=== PATIENT | female | born 1960 | race African-American/Black ===

== ENCOUNTER 2017-09-19 10:57 | Emergency (ER) | payer BC ==
[~2017-09-19] VITALS: Ht 144.8 cm; Wt 88.5 kg
--- NOTE | ~2017-09-19 | EKG ---
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
[~2017-09-19 10:57] MED LIST: ALBUTEROL2.5 MG/0.1; COZAAR100 MG PO; DOMPERIDONE 10MG PO; FLEXERIL PO; FLONASE 0.05%50 MCG NASAL; HYDROCHLOROTHIA25 M1 PO; IBUPROFEN 600600 M1 PO; JANUMET 50-1,01 EACH PO; LEVEMIR SUBQ; LEXAPRO 10 MG T10 M1 PO; LIPITOR10 MG PO; LOPRESSOR 50 MG50 M1 PO; MOBIC15 MG PO; NOVOLOG100 UNIT/1 SUBQ; OMEPRAZOLE40 MG PO; POTASSIUM20 PO; PROAIR HFA8.5 GM IH; PROTONIX40 M2 PO; SIMVASTATIN20 MG PO
[2017-09-19 11:09] VITALS: BP 129/72
[2017-09-19 12:05] LABS: ABSOLUTE NEUTROPHILS 6.4 thou/uL (1.4-8.2); BASOPHILS 0.7 % (0.0-2.0); EOSINOPHILS 1.2 % (0.0-3.0); HEMATOCRIT 39.4 % (37.0-47.0); HEMOGLOBIN 12.8 gm/dL (12.0-15.0); LYMPHOCYTES 35.8 % (24.0-44.0); MCH 26.6 pg (26.0-34.0); MCHC 32.5 g/dL (28.0-37.0); MCV 81.9 fL (80.0-100.0); MONOCYTES 4.2 % (1.0-8.0); PLATELET COUNT 228 thou/uL (150-400); POLYS 58.1 % (36.0-66.0); RBC 4.81 mil/uL (4.20-5.00); RDW 16.2 % (10.5-14.5)
[2017-09-19 12:17] LABS: CALCIUM 9.7 mg/dL (8.5-10.1); CREATININE 1.1 mg/dL (0.6-1.0); POTASSIUM 3.2 mmol/L (3.5-5.1)
[2017-09-19 12:23] LABS: ALBUMIN 3.8 g/dL (3.4-5.0); TOTAL BILIRUBIN 0.4 mg/dL (<0.1-1.0); TOTAL PROTEIN 7.7 g/dL (6.4-8.2)
[2017-09-19 13:47] LABS: URINE BILIRUBIN NEGATIVE (Negative); URINE BLOOD NEGATIVE (Negative); URINE CLARITY CLEAR; URINE COLOR YELLOW; URINE GLUCOSE-RANDOM* NEGATIVE (Negative); URINE KETONES NEGATIVE (Negative); URINE LEUKOCYTES-REFLEX TRACE (Negative); URINE NITRITE-REFLEX NEGATIVE (Negative); URINE PROTEIN (DIPSTICK) NEGATIVE (Negative); URINE SPECIFIC GRAVITY <= 1.005 (1.005-1.035); URINE UROBILINOGEN 0.2 E.U./dl (0.2-1.0)
[2017-09-19] MEDS ORDERED: ZOFRAN ODT4 MG PO (14:05)
[2017-09-19] MEDS ORDERED: CARAFATE 1 GM TA1 G1 PO (14:11)
== END 2017-09-19 21:03 | disposition home or self-care (01) ==
LOC: ER 10:57
PROVIDERS: Emergency Medicine
DX: R10.11 Right upper quadrant pain (principal); R11.0 Nausea; I10 Essential (primary) hypertension; E78.00 Pure hypercholesterolemia, unspecified; F32.9 Major depressive disorder, single episode, unspecified; J45.909 Unspecified asthma, uncomplicated; K21.9 Gastro-esophageal reflux disease without esophagitis; E11.43 Type 2 diabetes mellitus with diabetic autonomic (poly)neuropathy; K31.84 Gastroparesis; Z79.4 Long term (current) use of insulin; Z88.8 Allergy status to other drugs, medicaments and biological substances

== ENCOUNTER 2018-03-04 16:23 | Emergency (ER) | payer BC ==
[~2018-03-04] VITALS: Ht 149.9 cm; Wt 86.2 kg
[~2018-03-04 16:23] MED LIST changes: +CARAFATE 1 GM TA1 G1 PO; +ZOFRAN ODT4 MG PO
[2018-03-04 16:30] VITALS: BP 125/61
[2018-03-04] MEDS ORDERED: PROAIR HFA8.5 GM INH (16:46)
[2018-03-04] MEDS ORDERED: BENADRYL25 MG PO (16:46)
[2018-03-04] MEDS ORDERED: PREDNISONE 20 M20 MG PO (16:46)
== END 2018-03-04 17:05 | disposition home or self-care (01) ==
LOC: ER 16:23
DX: T78.40XA Allergy, unspecified, initial encounter (principal); I10 Essential (primary) hypertension; E78.00 Pure hypercholesterolemia, unspecified; E11.9 Type 2 diabetes mellitus without complications; J45.909 Unspecified asthma, uncomplicated; K21.9 Gastro-esophageal reflux disease without esophagitis; Z88.8 Allergy status to other drugs, medicaments and biological substances; X58.XXXA Exposure to other specified factors, initial encounter

== ENCOUNTER 2021-04-27 21:03 | Emergency (ER) | payer BC ==
[~2021-04-27] VITALS: Ht 157.5 cm; Wt 87.5 kg
[~2021-04-27 21:03] MED LIST changes: +BENADRYL25 MG PO; +PREDNISONE 20 M20 MG PO; +PROAIR HFA8.5 GM INH
[2021-04-27 21:49] LABS: ABSOLUTE NEUTROPHILS 6.2 thou/uL (1.4-8.2); EOSINOPHILS 1.3 % (0.0-3.0); HEMOGLOBIN 13.5 gm/dL (12.0-15.0); LYMPHOCYTES 34.4 % (24.0-44.0); MCHC 32.1 g/dL (28.0-37.0); MCV 87.2 fL (80.0-100.0); MONOCYTES 3.4 % (1.0-8.0); PLATELET COUNT 268 thou/uL (150-400); POLYS 59.9 % (36.0-66.0); RBC 4.82 mil/uL (4.20-5.00); RDW 15.9 % (10.5-14.5); WBC 10.4 thou/uL (4.0-11.0)
[2021-04-27 21:57] LABS: CALCIUM 8.9 mg/dL (8.5-10.1); CREATININE 1.1 mg/dL (0.6-1.0); POTASSIUM 3.8 mmol/L (3.5-5.1)
[2021-04-27 22:01] LABS: ALBUMIN 3.7 g/dL (3.4-5.0); TOTAL BILIRUBIN 0.3 mg/dL (0.2-1.0); TOTAL PROTEIN 7.5 g/dL (6.4-8.2)
[2021-04-27 22:19] LABS: URINE BILIRUBIN NEGATIVE (Negative); URINE BLOOD NEGATIVE (Negative); URINE CLARITY CLEAR; URINE COLOR YELLOW; URINE GLUCOSE-RANDOM* NEGATIVE (Negative); URINE KETONES TRACE (Negative); URINE LEUKOCYTES-REFLEX TRACE (Negative); URINE NITRITE-REFLEX NEGATIVE (Negative); URINE PROTEIN (DIPSTICK) 1+ (Negative); URINE UROBILINOGEN 0.2 E.U./dl (0.2-1.0)
[2021-04-27 22:31] LABS: BACTERIA-REFLEX 1-9 Few /HPF (None Seen); CASTS None Seen /LPF (None Seen); CRYSTALS None Seen /LPF (None Seen); MUCUS 0-3 Light strn/LPF (None Seen); SQUAMOUS 4-10 Moderate /LPF (0-3); URINE RBC 1-2 Rare /HPF (NONE SEEN); URINE WBC-REFLEX 0-5 Rare /HPF (0-5)
[2021-04-27 22:52] VITALS: BP 132/71
== END 2021-04-27 22:54 | disposition home or self-care (01) ==
LOC: ER 21:03
PROVIDERS: Physician Assistant
DX: E11.65 Type 2 diabetes mellitus with hyperglycemia (principal); E16.2 Hypoglycemia, unspecified; R61 Generalized hyperhidrosis; M79.674 Pain in right toe(s); R35.0 Frequency of micturition; I10 Essential (primary) hypertension; E78.00 Pure hypercholesterolemia, unspecified; F32.9 Major depressive disorder, single episode, unspecified; J45.909 Unspecified asthma, uncomplicated; K21.9 Gastro-esophageal reflux disease without esophagitis; Z85.05 Personal history of malignant neoplasm of liver; Z79.51 Long term (current) use of inhaled steroids; Z79.4 Long term (current) use of insulin; Z79.891 Long term (current) use of opiate analgesic; Z79.1 Long term (current) use of non-steroidal anti-inflammatories (NSAID); Z79.899 Other long term (current) drug therapy; Z88.6 Allergy status to analgesic agent; Z88.5 Allergy status to narcotic agent; Z88.8 Allergy status to other drugs, medicaments and biological substances; Z91.09 Other allergy status, other than to drugs and biological substances